=== PATIENT | female | born 1940 | race Caucasian/White ===

== ENCOUNTER 2023-11-03 10:59 | Outpatient (AMB) | payer OTHER, SELFPAY ==
--- NOTE | 2023-11-03 11:09 | A.OFFVIS_ITS ---
Intake Vital Signs 11/03/23 11:10 Height 5 ft 6 in Weight 173 lb BMI 27.9 BP 120/66 Blood Pressure Location Rt brachial Position Sitting Pulse 68 Pulse Source Pulse Oximeter Pulse Oximetry (%) 96 Oxygen Delivery Method Room Air Intake Visit Reasons: ENP-Hx TIA fall 2021-LVM Allergies codeine Allergy (Mild, Verified 11/03/23 11:13) Unknown morphine Allergy (Mild, Verified 11/03/23 11:13) Unknown Penicillins Allergy (Mild, Verified 11/03/23 11:13) Unknown Medication List - Last Reconciled 11/03/23 by Debbie Hawley MD amlodipine 5 mg PO DAILY anastrozole 1 mg PO DAILY aspirin 81 mg PO DAILY atorvastatin 40 mg PO DAILY hydrochlorothiazide 12.5 mg PO DAILY levothyroxine 75 mcg PO DAILY paroxetine HCl 20 mg PO DAILY propranolol ER 80 mg PO BEDTIME HPI HPI Comments History of Present Illness Details 82y/o right handed female comes for neur ological evaluation .About 2 years ago when she was grocery shopping she had trouble turning to the left . she had trouble walking and had trouble with left foot ? weakness.she was able to finish her shopping and go home. But when she called her PCP she was sent to ER at [facility].The whole episode lasted few minutes.she had an extensive evaluation and was admitted.she was started on aspirin 81mg qd. she was already on a statin . she has been doing good since then . No falls . Prior to this she had an episode where she could not find a credit card in her wallet - transient confusion lasting fe wminutes she was seen by Dr. Loving who suggested that these episodes could be seizures. No episodes since the event in the grocery shopping. [facility] Medical History (Updated 11/03/23 @ 11:56 by Debbie Hawley MD) Transient neurologic deficit Mitral valve regurgitation Hyperlipidemia Uterine cancer HTN (hypertension) Arthralgia SHAOIB on CPAP Migraines, neuralgic Thyroid nodule Aortic stenosis Osteopenia Prediabetes Vitamin D deficiency TIA (transient ischemic attack) Subclavian arterial stenosis Esophagus tear Breast CA Gall bladder disease Surgical History H/O: hysterectomy Family History Father Bladder cancer Mother Hypertension Breast cancer Brother Diabetes Social History Alcohol intake: never Patient Tobacco Use Status: Never used Tobacco Physical Exam Vital Signs: Last Vital Signs Pulse 68 11/03/23 11:10 BP 120/66 11/03/23 11:10 Pulse Ox 96 11/03/23 11:10 Oxygen Delivery Method Room Air 11/03/23 11:10 BMI result Body Mass Index 27.9 Const General: cooperative, healthy appearing, comfortable and no acute distress Nutritional Appearance: average body habitus Orientation/consciousness: patient oriented x3 HEENT Head: Yes normal to inspection Eyes Pupils: Equal, round and reactive pupils present Neuro General: patient oriented x3, gait normal, tone normal, moves all extremities and no focal motor deficits Cranial nerves: Yes Equal, round and reactive pupils present, Yes Bilaterally intact EOM present, Yes Nystagmus not present, Yes Normal facial strength present, Yes Midline tongue present and Yes Symmetric palate elevation present Cognition (Neuro): normal cognition Gait exam (Neuro): Normal gait present Motor exam (neuro): 5/5 motor strength present throughout and Normal motor muscle tone present throughout Assessment & Plan Assessment & Plan (1) Transient neurologic deficit: Comment: TIA VS / seizures Code(s): R29.818 - Other symptoms and signs involving the nervous system Plan The episode she described lasted for few minutes- unclear if it was a TIA Buts he has risk factors for TIA and has been stable with aspirin 81mg qd and atorvostatin 40mg qd I suggested she continue taking them she was diagnosed with seizures by Dr. Loving after 1 episode of transient confusion. she denies any new episodes. I will get reports from [facility] and Dr. Segundo office for review. Coding Level of Care Code New Pt Level 4 (68955) Diagnoses Transient neurologic deficit R29.818
[2023-11-03 11:10] VITALS: BP 120/66; PULSE 68; O2SAT 96; BMI 27.9
== END 2023-11-03 11:45 | disposition home or self-care (01) ==
PROVIDERS: PCP Family Medicine; Visit Provider Psychiatry & Neurology Neurology
DX: R29.818 Other symptoms and signs involving the nervous system (principal)
CPT/HCPCS: 99204

== ENCOUNTER → 2023-11-03 10:59 | Outpatient (BNVA) | payer OTHER, SELFPAY | PROVIDERS: PCP Family Medicine; Visit Provider Psychiatry & Neurology Neurology ==

== ENCOUNTER 2024-05-03 12:57 | Outpatient (AMB) | payer OTHER, SELFPAY ==
--- NOTE | 2024-05-03 12:59 | A.OFFVIS_ITS ---
Vital Signs 05/03/24 13:00 Height 5 ft 6 in Weight 171 lb 8 oz BMI 27.7 BP 90/58 L Blood Pressure Location Lt brachial Position Sitting Respiration 16 Pulse 64 Pulse Source Pulse Oximeter Pulse Oximetry (%) 97 Oxygen Delivery Method Room Air Intake Visit Reasons: Follow up - Confirmed Intake Note: Pt presents for 6 month followup for transient neurologic deficit. [employer] Required: No Allergies codeine Allergy (Mild, Verified 05/03/24 12:59) Unknown morphine Allergy (Mild, Verified 05/03/24 12:59) Unknown Penicillins Allergy (Mild, Verified 05/03/24 12:59) Unknown Medication List - Last Reconciled 05/03/24 by Debbie Hawley MD amlodipine 5 mg PO DAILY anastrozole 1 mg PO DAILY aspirin 81 mg PO DAILY atorvastatin 40 mg PO DAILY hydrochlorothiazide 12.5 mg PO DAILY levothyroxine 75 mcg PO DAILY paroxetine HCl 20 mg PO DAILY propranolol ER 80 mg PO BEDTIME HPI Comments Details: 83y/o right handed female comes for follow up.No new episodes of confusion or transient neurological deficit since last visit. .About 2 years ago when she was grocery shopping she had trouble turning to the left . she had trouble walking and had trouble with left foot ? weakness.she was able to finish her shopping and go home. But when she called her PCP she was sent to ER at [facility].The whole episode lasted few minutes.she had an extensive evaluation and was admitted.she was started on aspirin 81mg qd. she was already on a statin . she has been doing good since then . No falls . Prior to this she had an episode where she could not find a credit card in her wallet - transient confusion lasting few minutes she was seen by Dr. Loving who suggested that these episodes could be seizures. No episodes since the event in the grocery shopping. [facility] Medical History Transient neurologic deficit Mitral valve regurgitation Hyperlipidemia Uterine cancer HTN (hypertension) Arthralgia SHOAIB on CPAP Migraines, neuralgic Thyroid nodule Aortic stenosis Osteopenia Prediabetes Vitamin D deficiency TIA (transient ischemic attack) Subclavian arterial stenosis Esophagus tear Breast CA Gall bladder disease Surgical History H/O: hysterectomy Family History Father Bladder cancer Mother Hypertension Breast cancer Brother Diabetes Social History Alcohol intake: never Patient Tobacco Use Status: Never used Tobacco Physical Exam Vital Signs: Last Vital Signs Pulse 64 05/03/24 13:00 Resp 16 05/03/24 13:00 BP 90/58 L 05/03/24 13:00 Pulse Ox 97 05/03/24 13:00 Oxygen Delivery Method Room Air 05/03/24 13:00 BMI result Body Mass Index 27.7 Const General: cooperative, healthy appearing, comfortable and no acute distress Nutritional Appearance: average body habitus Orientation/consciousness: patient oriented x3 HEENT Head: Yes normal to inspection Eyes Pupils: Equal, round and reactive pupils present Neuro General: patient oriented x3, gait normal, tone normal, moves all extremities and no focal motor deficits Cranial nerves: Yes Equal, round and reactive pupils present, Yes Bilaterally intact EOM present, Yes Nystagmus not present, Yes Normal facial strength present, Yes Midline tongue present and Yes Symmetric palate elevation present Cognition (Neuro): normal cognition Gait exam (Neuro): Normal gait present Motor exam (neuro): 5/5 motor strength present throughout and Normal motor muscle tone present throughout Assessment & Plan Assessment & Plan (1) Transient neurologic deficit: Comment: TIA VS / seizures Code(s): R29.818 - Other symptoms and signs involving the nervous system Category: Medical Plan The episode she described lasted for few minutes- unclear if it was a TIA Buts he has risk factors for TIA and has been stable with aspirin 81mg qd and atorvostatin 40mg qd I suggested she continue taking them she was diagnosed with seizures by Dr. Loving after 1 episode of transient confusion. she denies any new episodes. Continue CPAP Coding Level of Care Code Est Pt Level 4 (02768) Diagnoses Transient neurologic deficit R29.818
[2024-05-03 13:00] VITALS: BP 90/58; PULSE 64; RESP 16; O2SAT 97; BMI 27.7
== END 2024-05-03 14:01 | disposition home or self-care (01) ==
PROVIDERS: PCP Family Medicine; Visit Provider Psychiatry & Neurology Neurology
DX: R29.818 Other symptoms and signs involving the nervous system (principal)
CPT/HCPCS: 99214

== ENCOUNTER → 2024-05-03 12:57 | Outpatient (BNVA) | payer OTHER, SELFPAY | PROVIDERS: PCP Family Medicine; Visit Provider Psychiatry & Neurology Neurology ==